=== PATIENT | female | born 1945 | race Caucasian/White ===

== ENCOUNTER 2023-10-25 07:35 | Day surgery (SDC) | payer MEDICARE, MEDICAID ==
[2023-10-17 11:35] LABS: EOSINOPHILS # (AUTO) 0.1 X10'3 (0-0.9); EOSINOPHILS % (AUTO) 1.6 % (0-6); LYMPHOCYTES # (AUTO) 1.6 X10'3 (1.1-4.8); LYMPHOCYTES % (AUTO) 35.5 % (21-51); MEAN CORPUSCULAR HEMOGLOBIN 31.5 PG (27.0-31.0); MEAN CORPUSCULAR HGB CONC 33.7 g/dL (33.0-36.5); MEAN CORPUSCULAR VOLUME 93.6 FL (78-98); MEAN PLATELET VOLUME 9.3 FL (7.4-10.4); MONOCYTES # (AUTO) 0.3 X10'3 (0-0.9); MONOCYTES % (AUTO) 7.8 % (2-12); NEUTROPHILS # (AUTO) 2.4 X10'3 (1.8-7.7); NEUTROPHILS % (AUTO) 54.1 % (42-75); PRE OP HEMATOCRIT 41.3 % (35.0-45.0); PRE OP HEMOGLOBIN 13.9 g/dL (12.0-16.0); PRE OP PLATELET COUNT 208 X10'3 (140-440); PRE OP WHITE BLOOD COUNT 4.4 10'3 (4.8-10.8); RED BLOOD COUNT 4.42 X10'6 (4.20-5.60); RED CELL DISTRIBUTION WIDTH 13.8 % (11.5-14.5)
[2023-10-17 11:45] LABS: ALBUMIN 3.9 G/DL (3.4-5.0); ALBUMIN/GLOBULIN RATIO 1.1 (1.1-1.5); ALKALINE PHOSPHATASE 49 IU/L (46-116); BLOOD UREA NITROGEN 11 MG/DL (7-18); BUN/CREATININE RATIO 12.1 (10.0-20.0); CALCIUM 8.9 MG/DL (8.5-10.1); CHLORIDE 104 MMOL/L (99-107); CREATININE 0.91 MG/DL (0.40-0.90); PRE OP ALT 30 U/L (30-65); PRE OP ANION GAP 8 (8-16); PRE OP AST 22 U/L (10-37); PRE OP BILIRUB, TOTAL 0.6 MG/DL (0.0-1.0); PRE OP GLUCOSE 100 MG/DL (70-104); PRE OP SODIUM 141 MMOL/L (135-145); TOTAL CARBON DIOXIDE 28.9 MMOL/L (24-32); TOTAL PROTEIN 7.6 G/DL (6.4-8.2); eGFR 60 ML/MIN
[~2023-10-25] VITALS: Ht 165.1 cm; Wt 77.6 kg
[2023-10-25] VITALS (17 sets, daily range): BP systolic 117–142; BP diastolic 53–82; PULSE 51–86; RESP 8–16; TEMP 98; O2SAT 97–100
[2023-10-25] MEDS: cefazolin 2gm/D5W 100mL 100 ML IV ONE (05:30)
[~2023-10-25 07:35] MED LIST: ASPI-612 PO; BUPIVACAINE liposomal/PF 13.3 MG/ML vial IM ONE; CALCIUM; NIACIN; SIMV-45 PO; VIT C; VIT D
[2023-10-25] MEDS: ringers solution, lacted 1,000 ML IV SCH (08:09)
[2023-10-25] MEDS: famotidine 20mg tablet PO ONE (08:09)
[2023-10-25] MEDS ORDERED: fentaNYL/PF 50MCG/1 ML 2ML syringe ONE (09:41)
[2023-10-25] MEDS ORDERED: propofol inj 20 ML IV ONE (09:41)
[2023-10-25] MEDS ORDERED: acetaminophen 1,000mg/100ml IV 100 ML IV ONE (09:41)
[2023-10-25] MEDS ORDERED: ondansetron/PF 4mg/2ml inj ONE (09:41)
[2023-10-25] MEDS ORDERED: midazolam 1 mg/ML 2ml injection ONE (09:41)
[2023-10-25] MEDS ORDERED: dexamethasone sod phosphate 4mg/ml inj. ONE (09:42)
[2023-10-25] MEDS ORDERED: LIDOcaine 2% (20mg/ml) 5ml vial ONE (09:42)
[2023-10-25] MEDS ORDERED: ringers solution, lacted 1,000 ML IV SCH (09:50)
[2023-10-25] MEDS ORDERED: labetalol 20mg/4ml (5mg/ml) syringe IV PRN (09:50)
[2023-10-25] MEDS ORDERED: desflurane 240ml liquid inh. IH ONE (09:50)
[2023-10-25] MEDS ORDERED: morphine 2 MG/ML inj. syringe IV PRN (09:50)
[2023-10-25] MEDS ORDERED: ondansetron/PF 4mg/2ml inj IV PRN (09:50)
[2023-10-25] MEDS ORDERED: fentaNYL/PF 50MCG/1 ML 2ML syringe IV PRN ×2 (09:50)
[2023-10-25] MEDS ORDERED: hydrALAZINE 20mg/ml inj. IV PRN (09:50)
[2023-10-25] MEDS ORDERED: morphine 4 MG/ML inj SYRINge IV PRN (09:50)
[2023-10-25] MEDS ORDERED: ePHEDrine 50MG/ML INJ. ONE (10:11)
[2023-10-25] MEDS: LIDOcaine 1% (10mg/ml)w/preservative inj. 20ml MDV ONE (10:48)
[2023-10-25] MEDS: BUPIVAcaine/PF 2.5mg/ml (0.25%) 10ml vial ONE (10:48)
[2023-10-25] MEDS: methylene blue (5mg/ml) 50mg/10ml ampul IV ONE (10:49)
[2023-10-25] MEDS: BUPIVACAINE liposomal/PF 13.3 MG/ML vial IM ONE (11:15)
== END 2023-10-25 15:00 | disposition home or self-care (01) ==
LOC: PAS 07:35
PROVIDERS: ATTEND Surgery
DX: C50.912 Malignant neoplasm of unspecified site of left female breast (principal); Z79.899 Other long term (current) drug therapy; Z79.01 Long term (current) use of anticoagulants; Z88.8 Allergy status to other drugs, medicaments and biological substances; Z91.040 Latex allergy status; R00.1 Bradycardia, unspecified
CPT/HCPCS: 19301; 36415; 38525; 38900; 76098; 80053; 82948; 85025; 93005; C9290; J0131; J0690; J1100; J2250; J2405; J2704; J3010; J3490; J7030; J7120; Q9968; Z7506; Z7508; Z7512; A4215; A4618; A6258; A7000